=== PATIENT | female | born 1985 | race Caucasian/White ===

== ENCOUNTER 2021-05-17 07:41 | Emergency (ER) | payer OTHER, SELFPAY | END 2021-05-17 09:00 | disposition home or self-care (01) | LOC: CSHERS 07:41 | DX: L25.3 Unspecified contact dermatitis due to other chemical products (principal); M79.642 Pain in left hand; M79.641 Pain in right hand; F17.210 Nicotine dependence, cigarettes, uncomplicated | CPT/HCPCS: 99283 ==

== ENCOUNTER 2021-12-16 10:43 | Day surgery (SDC) | payer OTHER ==
[2021-12-16] MEDS ORDERED: hydrALAZINE 20 MG/ML VIAL SLOW IVP PRN (11:19)
[2021-12-16 11:38] VITALS: BMI 34.7
[2021-12-16] MEDS ORDERED: Lactated Ringer's 1,000 ML IV SCH (12:00)
== END 2021-12-16 16:30 | disposition home or self-care (01) ==
LOC: CSHLD/OP 10:43
PROVIDERS: ATTEND Obstetrics & Gynecology
DX: O36.8130 Decreased fetal movements, third trimester, not applicable or unspecified (principal); O41.03X0 Oligohydramnios, third trimester, not applicable or unspecified; O47.1 False labor at or after 37 completed weeks of gestation; O09.523 Supervision of elderly multigravida, third trimester; O35.8XX0 Maternal care for other (suspected) fetal abnormality and damage, not applicable or unspecified; O99.343 Other mental disorders complicating pregnancy, third trimester; F41.1 Generalized anxiety disorder; Z3A.38 38 weeks gestation of pregnancy; Z79.899 Other long term (current) drug therapy; Z88.2 Allergy status to sulfonamides
CPT/HCPCS: 76815

== ENCOUNTER 2021-12-23 08:22 | Outpatient (CLI) | payer OTHER | END 2021-12-23 08:23 | disposition home or self-care (01) | LOC: CSHLAB 08:22 | PROVIDERS: ATTEND Student in an Organized Health Care Education/Training Program | DX: Z53.9 Procedure and treatment not carried out, unspecified reason (principal) | CPT/HCPCS: 85027; 86780; 86850; 86900; 86901; 87340; U0003; U0005 ==

== ENCOUNTER 2021-12-24 05:39 | Inpatient (IN) | payer OTHER ==
[2021-12-23 11:26] LABS: Hemoglobin 10.9 g/dL (12.0-15.5); Mean Corpuscular HGB CONC 32.8 g/dL (32.0-36.0); Mean Corpuscular Hemoglobin 29.6 pg (27.0-33.0); Mean Corpuscular Volume 90.2 fl (81.6-98.3); Mean Platelet Volume 11.3 fl (7.4-10.4); Platelet Count 189 10x3/uL (150-450); RBC Distribution Width 13.2 % (11.5-14.5); Red Blood Cell (RBC) Count 3.68 10x6/uL (3.90-5.03); White Blood Cell (WBC) Count 9.1 10x3/uL (3.5-10.5)
[2021-12-23 12:01] LABS: Syphilis Antibody Nonreactive (Nonreactive); Syphilis Antibody Index 0.03 S/CO (<1.00 Non-Reactive)
[2021-12-23 12:08] LABS: Hep B Surf Ag Non-Reactive S/CO (NonReactive)
[2021-12-23 12:10] LABS: HBSAg Index 0.18 S/CO (0-0.99)
[2021-12-24 06:12] VITALS: BMI 34.7
[2021-12-24] MEDS ORDERED: Promethazine HCl 25 MG/ML VIAL IM PRN ×2 (06:55→13:06)
[2021-12-24] MEDS ORDERED: Famotidine/PF 20 mg/2ml Vial SLOW IVP PRN (06:55)
[2021-12-24] MEDS ORDERED: Bicitra 30 ML UDCUP PO PRN (06:55)
[2021-12-24] MEDS ORDERED: Ondansetron PF 4 MG/2 ML Vial IVP PRN ×2 (06:55→13:06)
[2021-12-24] MEDS ORDERED: hydrALAZINE 20 MG/ML VIAL SLOW IVP PRN ×2 (06:55→15:49)
[2021-12-24] MEDS ORDERED: Tranexamic Acid 1,000 MG/10 ML VIAL ONE (08:20)
[2021-12-24] MEDS ORDERED: Carboprost 250 MCG/ML AMP ONE (08:20)
[2021-12-24] MEDS ORDERED: CEFAZOLIN 2 GM VIAL ONE (08:20)
[2021-12-24] MEDS ORDERED: Misoprostol 200 MCG TAB ONE (08:21)
[2021-12-24] MEDS ORDERED: Methylergonovine 0.2 MG/ML VIAL ONE (08:21)
[2021-12-24] MEDS ORDERED: Morphine PF 10 MG/10 ML VIAL ONE (10:31)
[2021-12-24] MEDS ORDERED: Oxytocin 10 UNITS/ML VIAL ONE (10:32)
[2021-12-24] MEDS ORDERED: Ketorolac Tromethamine 30 MG/ML VIAL ONE (10:32)
[2021-12-24] MEDS ORDERED: Ondansetron PF 4 MG/2 ML Vial ONE (10:32)
[2021-12-24] MEDS ORDERED: Phenylephrine 40 MG/NS 250 ML 250 ML ONE (10:32)
[2021-12-24] MEDS ORDERED: Dexamethasone 4 mg/ml Vial ONE (10:32)
[2021-12-24 12:32] LABS: Critical Notified Whom: BRAAM; pH (Cord, venous) 7.326 (7.250-7.350)
[2021-12-24] MEDS ORDERED: diphenhydrAMINE 50 MG/ML VIAL IVP PRN (13:06)
[2021-12-24] MEDS ORDERED: Naloxone HCl 0.4 mg/ml Vial IVP PRN ×2 (13:06)
[2021-12-24] MEDS ORDERED: Ondansetron HCl/PF 4 MG/2 ML Vial IVP PRN (13:06)
[2021-12-24] MEDS ORDERED: Fentanyl 100 MCG/2 ML VIAL SLOW IVP PRN (13:06)
[2021-12-24] MEDS ORDERED: Naloxone HCl 0.4 mg/ml Vial IV PRN (13:06)
[2021-12-24] MEDS ORDERED: Moisturizing Cream (Eucerin) 113 GM JAR TOP PRN (13:06)
[2021-12-24] MEDS ORDERED: Meperidine HCl/PF 25 MG/ML VIAL SLOW IVP PRN (13:06)
[2021-12-24] MEDS ORDERED: Promethazine HCl 25 MG SUPP PR PRN (13:06)
[2021-12-24] MEDS ORDERED: Communication Order-Pharmacy FS SCH (13:15)
[2021-12-24] MEDS ORDERED: Ketorolac Tromethamine 30 MG/ML VIAL IVP SCH (13:15)
[2021-12-24] MEDS ORDERED: Boostrix 0.5 ML (Tdap) VIAL IM ONE (15:49)
[2021-12-24] MEDS ORDERED: Lanolin Ointment 7 GM TUBE TOP PRN (15:49)
[2021-12-24] MEDS: Ferrous Sulfate 325 MG TAB PO SCH (20:19)
[2021-12-24] MEDS: Docusate 100 MG CAP PO SCH (20:22)
[2021-12-24] MEDS: Ketorolac Tromethamine 30 MG/ML VIAL IVP PRN (20:23)
[2021-12-24] MEDS: Simethicone Chewable 80 MG TAB PO PRN (20:23)
[2021-12-25] MEDS ORDERED: HYDROcodone/Acetaminophen 5/325 mg Tablet PO PRN (01:15)
[2021-12-25 06:49] LABS: Hemoglobin 9.4 g/dL (12.0-15.5); Mean Corpuscular HGB CONC 32.9 g/dL (32.0-36.0); Mean Corpuscular Hemoglobin 29.3 pg (27.0-33.0); Mean Corpuscular Volume 89.1 fl (81.6-98.3); Platelet Count 180 10x3/uL (150-450); RBC Distribution Width 13.1 % (11.5-14.5); Red Blood Cell (RBC) Count 3.21 10x6/uL (3.90-5.03); White Blood Cell (WBC) Count 14.4 10x3/uL (3.5-10.5)
[2021-12-25] MEDS: Prenatal Vitamin 1 TAB PO SCH (07:57)
[2021-12-25] MEDS: Docusate 100 MG CAP PO SCH ×2 (07:57→21:37)
[2021-12-25] MEDS: Ferrous Sulfate 325 MG TAB PO SCH ×2 (07:58→21:36)
[2021-12-25] MEDS: Simethicone Chewable 80 MG TAB PO PRN ×4 (08:04→21:36)
[2021-12-25] MEDS: Ketorolac Tromethamine 30 MG/ML VIAL IVP PRN (08:04)
[2021-12-25] MEDS: traMADol HCl 50 MG TAB PO PRN ×4 (11:23→23:53)
[2021-12-25] MEDS: Ibuprofen 800 MG TAB PO SCH ×2 (13:11→21:36)
[2021-12-25] MEDS: Acetaminophen 325 MG TAB PO PRN (20:16)
[2021-12-26] MEDS: Acetaminophen 325 MG TAB PO PRN (02:50)
[2021-12-26] MEDS: Ibuprofen 800 MG TAB PO SCH ×2 (06:02→13:31)
[2021-12-26] MEDS: Simethicone Chewable 80 MG TAB PO PRN (06:02)
[2021-12-26 07:32] VITALS: TEMP 98.2
[2021-12-26] MEDS: Simethicone Chewable 80 MG TAB PO SCH ×3 (07:35→13:31)
[2021-12-26] MEDS: HYDROcodone/Acetaminophen 5/325 mg Tablet PO PRN ×2 (08:21→13:31)
[2021-12-26] MEDS: Ferrous Sulfate 325 MG TAB PO SCH (08:22)
[2021-12-26] MEDS: Prenatal Vitamin 1 TAB PO SCH (08:22)
[2021-12-26] MEDS ORDERED: Polyethylene Glycol 3350 17 GM Packet PO SCH (09:00)
[2021-12-26 11:53] VITALS: BP 111/62
== END 2021-12-26 14:45 | disposition home or self-care (01) | DRG 784 ==
LOC: CSHLD 05:39 → CSHPP 15:14
PROVIDERS: ADMIT Student in an Organized Health Care Education/Training Program; ATTEND Student in an Organized Health Care Education/Training Program
PROC: 10D00Z1 Extraction of Products of Conception, Low, Open Approach (ICD-10-PCS; principal; 2021-12-24)
PROC: 0UT70ZZ Resection of Bilateral Fallopian Tubes, Open Approach (ICD-10-PCS; 2021-12-24)
DX: O99.344 Other mental disorders complicating childbirth (principal); O99.354 Diseases of the nervous system complicating childbirth; F41.1 Generalized anxiety disorder; Z20.822 Contact with and (suspected) exposure to COVID-19; Z37.0 Single live birth; Z3A.39 39 weeks gestation of pregnancy; K21.9 Gastro-esophageal reflux disease without esophagitis; O99.62 Diseases of the digestive system complicating childbirth; G43.909 Migraine, unspecified, not intractable, without status migrainosus; Z90.49 Acquired absence of other specified parts of digestive tract; Z80.41 Family history of malignant neoplasm of ovary; Z79.899 Other long term (current) drug therapy; Z88.2 Allergy status to sulfonamides
CPT/HCPCS: 36415; 51702; 82805; 85027; 86780; 86850; 86900; 86901; 87340; 88302; J0690; J1100; J1200; J1885; J2274; J2405; J2590; S0028; U0003; U0005

== ENCOUNTER 2022-06-30 17:52 | Emergency (ER) | payer OTHER | END 2022-06-30 18:59 | disposition left against medical advice (07) | LOC: CSHERS 17:52 | DX: Z53.21 Procedure and treatment not carried out due to patient leaving prior to being seen by health care provider (principal) ==

== ENCOUNTER 2022-07-01 01:36 | Emergency (ER) | payer OTHER ==
[2022-07-01] MEDS ORDERED: Lidocaine 1% (PF) 30 ML VIAL ONE (04:44)
[2022-07-01] MEDS ORDERED: HYDROcodone/Acetaminophen 5/325 mg Tablet ONE (04:45)
[2022-07-01] MEDS ORDERED: Doxycycline 100 MG CAP PO SCH (05:00)
== END 2022-07-01 05:55 | disposition home or self-care (01) ==
LOC: CSHERS 01:36
DX: L02.11 Cutaneous abscess of neck (principal)
CPT/HCPCS: 10060; J2001

== ENCOUNTER 2022-07-03 08:19 | Emergency (ER) | payer OTHER ==
[2022-07-03] MEDS ORDERED: Morphine 4 MG/ML VIAL ONE (09:27)
[2022-07-03 09:36] LABS: #Eosinphils 0.1 10x3/uL (0.0-0.5); #Monocytes 0.4 10x3/uL (0.0-1.1); %Basophils 0.7 % (0.0-2.0); %Eosinophils 1.5 % (0.0-6.0); %Lymphocytes 24.1 % (18.0-47.0); %Monocytes 7.1 % (0.0-10.0); %Neutrophils 66.4 % (40.0-75.0); Mean Corpuscular HGB CONC 34.1 g/dL (32.0-36.0); Mean Corpuscular Hemoglobin 30.3 pg (27.0-33.0); Mean Corpuscular Volume 88.8 fl (81.6-98.3); Mean Platelet Volume 9.9 fl (7.4-10.4); Platelet Count 217 10x3/uL (150-450); RBC Distribution Width 12.3 % (11.5-14.5); Red Blood Cell (RBC) Count 4.29 10x6/uL (3.90-5.03); White Blood Cell (WBC) Count 5.9 10x3/uL (3.5-10.5)
[2022-07-03 09:46] LABS: BHCG - Serum Negative (NEGATIVE); Pregs Control Background? CLEAR/WHITE (CLR/WHITE); Pregs Control Bar Appear? YES (CONTROL BAR)
[2022-07-03 09:55] LABS: ALT (SGPT) 811 U/L (8-55); AST (SGOT) 755 U/L (5-34); Albumin 4.1 g/dL (3.5-5.0); Alkaline Phosphatase 228 U/L (40-110); Anion Gap 12 mmol/L (10-20); BUN (Urea Nitrogen) 9 mg/dL (7.0-18.7); Bilirubin, Total 1.3 mg/dL (0.2-1.2); CK (CPK) 78 U/L (29-168); Calc. Creatinine Clearance 0 mL/min (70-130); Calcium 9.2 mg/dL (7.8-10.44); Carbon Dioxide 25 mmol/L (22-29); Chloride 105 mmol/L (98-107); Estimated GFR 93; Globulin 3.3 g/dL (2.4-3.5); Glucose 131 mg/dL (70-105); Potassium 3.9 mmol/L (3.5-5.1); Protein, Total 7.4 g/dL (6.0-8.3); Sodium 138 mmol/L (136-145)
== END 2022-07-03 13:27 | disposition home or self-care (01) ==
LOC: CSHERS 08:19
DX: L02.11 Cutaneous abscess of neck (principal)
CPT/HCPCS: 36415; 72156; 72157; 80053; 82550; 84703; 85025; 96374; J2270